=== PATIENT | female | born 1990 | race Caucasian/White ===

== ENCOUNTER 2017-09-17 10:24 | Emergency (ER) | payer BC ==
[2017-09-17 10:37] VITALS: BP 158/90
--- NOTE | 2017-09-17 11:06 | EDM.PDOC ---
ED HPI GENERAL MEDICAL PROBLEM - General Chief Complaint: Laceration Stated Complaint: SOMETHING IN BOTTOM OF FOOT Time Seen by Provider: 09/17/17 10:45 Source of Information: Reports: Patient History Limitations: Reports: No Limitations - History of Present Illness INITIAL COMMENTS - FREE TEXT/NARRATIVE: 27 yo female stepped on a small piece of glass at home before arrival. Is here for removal. Tetanus is UTD. 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) - Related Data Allergies Allergy/AdvReac Type Severity Reaction Status Date / Time No Known Allergies Allergy Verified 09/17/17 10:37 Home Meds: Home Meds NK [No Known Home Meds] 10/21/16 [History] Past Medical History Respiratory History: Reports: Asthma Musculoskeletal History: Reports: Fracture Dermatologic History: Reports: Other (See Below) Other Dermatologic History: EllersDanlows syndrome - Infectious Disease History Infectious Disease History: Reports: Chicken Pox - Past Surgical History Female Surgical History: Reports: Section Social & Family History - Tobacco Use Smoking Status *Q: Current Every Day Smoker Years of Tobacco use: 8 Packs/Tins Daily: 0.5 - Recreational Drug Use Recreational Drug Use: No ED ROS GENERAL - Review of Systems Review Of Systems: See Below Constitutional: Reports: No Symptoms Musculoskeletal: Reports: No Symptoms Skin: Reports: Wound (small puncture wound to the R heel.) Neurological: Reports: No Symptoms ED EXAM, SKIN/RASH Exam: See Below Exam Limited By: No Limitations General Appearance: Alert, WD/WN, No Apparent Distress Psychiatric: Normal Affect, Normal Mood Skin: Warm, Dry, Normal Color, No Rash, Wound/Incision (small puncture wound to R heel, no bleeding) Characteristics: Fine Associated features: Tenderness ED SKIN PROCEDURES - Foreign Body Removal Indication:: Small piece of glass in her R heel. Consent Obtained:: Patient Performing Doctor:: Jose Alex Foreign Body Other Location Comment:: R heel, plantar surface. Anesthesia Type: None Findings:: wound prep'd with alcohol. #18 g needle used to expose the glass, removal with manipulation by the #18 g needle and a splinter forceps. Complications:: No Course - Vital Signs Last Recorded V/S: Last Vital Signs Temp 36.6 C 09/17/17 10:36 Pulse 57 L 09/17/17 10:36 Resp 18 09/17/17 10:36 BP 158/90 H 09/17/17 10:36 Pulse Ox 97 09/17/17 10:36 Departure - Departure Time of Disposition: 11:05 Disposition: Home, Self-Care 01 Condition: Good Clinical Impression: Removal of foreign body - Discharge Information Referrals: PCP,None [Primary Care Provider] -
== END 2017-09-17 11:14 | disposition home or self-care (01) ==
LOC: JP.ED 10:24
DX: S91.341A Puncture wound with foreign body, right foot, initial encounter (principal); W25.XXXA Contact with sharp glass, initial encounter; W45.8XXA Other foreign body or object entering through skin, initial encounter; F17.210 Nicotine dependence, cigarettes, uncomplicated
CPT/HCPCS: 28190; 99283-25